=== PATIENT | male | born 1935 | race American Indian/Alaskan Native ===

== ENCOUNTER 2016-09-14 12:05 | Emergency (ER) | payer MEDICARE ==
[2016-09-14 12:30] VITALS: BP 127/86
[2016-09-14] MEDS ORDERED: FLEXERIL PO ONE (13:47)
[2016-09-14] MEDS ORDERED: NORCO 5/325 PO ONE (13:47)
--- NOTE | 2016-09-14 13:47 | Emergency Department Report ---
ED Neck Pain/Injury HPI - General Chief Complaint: Neck Pain/Injury Stated Complaint: NECK PAIN Time Seen by Provider: 09/14/16 13:41 Mode of arrival: Ambulatory Limitations: No Limitations - History of Present Illness Initial Comments: Patient has history of recurrent musculoskeletal neck pain. pt denies injury, headache,photofobia, n/v, dizziness, paresthesia, weakness, confusion or slurred speech. pt lives with his daughter and she confirms that this is a normal recurrence of his neck pain and pts behavior has been normal as usual . MD Complaint: neck pain, neck injury -: Gradual Radiation: right lateral, right shoulder Severity scale (0 -10): 6 Quality: aching Improves With: heat therapy Worsens With: movement of neck Associated Symptoms: none. denies: headache, fever, numbness, tingling, weakness, vertigo, difficulty walking, swollen glands, difficulty swallowing, nausea, vomiting - Related Data Previous Rx's Medication Instructions Recorded Last Taken Type Meloxicam [Mobic] 7.5 mg PO QDAY #7 tablet 09/14/16 Unknown Rx Methocarbamol [Robaxin TAB] 750 mg PO BID #20 tablet 09/14/16 Unknown Rx Allergies Allergy/AdvReac Type Severity Reaction Status Date / Time No Known Allergies Allergy Unverified 09/14/16 12:27 ED Review of Systems ROS: Stated complaint: NECK PAIN Other details as noted in HPI Constitutional: denies: chills, fever Eyes: denies: eye pain, eye discharge, vision change ENT: denies: ear pain, throat pain Respiratory: denies: cough, shortness of breath, wheezing Cardiovascular: denies: chest pain, palpitations Endocrine: no symptoms reported Gastrointestinal: denies: abdominal pain, nausea, diarrhea Genitourinary: denies: urgency, dysuria Musculoskeletal: denies: back pain, joint swelling, arthralgia Skin: denies: rash, lesions Neurological: denies: headache, weakness, paresthesias Psychiatric: denies: anxiety, depression Hematological/Lymphatic: denies: easy bleeding, easy bruising ED Past Medical Hx - Past Medical History Previous Medical History?: Yes Hx Hypertension: Yes - Surgical History Past Surgical History?: No - Social History Smoking Status: Never Smoker Substance Use Type: None - Medications Home Medications: Home Medications Medication Instructions Recorded Confirmed Last Taken Type Meloxicam [Mobic] 7.5 mg PO QDAY #7 tablet 09/14/16 Unknown Rx Methocarbamol [Robaxin TAB] 750 mg PO BID #20 tablet 09/14/16 Unknown Rx ED Physical Exam - General Limitations: No Limitations General appearance: alert, in no apparent distress - Head Head exam: Present: atraumatic, normocephalic - Eye Eye exam: Present: normal appearance, PERRL, EOMI - ENT ENT exam: Present: mucous membranes moist - Neck Neck exam: Present: normal inspection, tenderness, full ROM. Absent: meningismus, lymphadenopathy, thyromegaly - Expanded Neck Exam Expanded Neck exam: Present: tenderness (right paraspinous tenderness). Absent: midline deformity, anterior neck swelling, thyroid mass, carotid bruit 1 - torticollis - Respiratory Respiratory exam: Present: normal lung sounds bilaterally. Absent: respiratory distress, wheezes, rales, rhonchi, chest wall tenderness, accessory muscle use, decreased breath sounds, prolonged expiratory - Cardiovascular Cardiovascular Exam: Present: regular rate, normal rhythm. Absent: systolic murmur, diastolic murmur, rubs, gallop - GI/Abdominal GI/Abdominal exam: Present: soft, normal bowel sounds - Rectal Rectal exam: Present: deferred - Extremities Exam Extremities exam: Present: normal inspection - Back Exam Back exam: Present: normal inspection, full ROM. Absent: tenderness, CVA tenderness (R), CVA tenderness (L), muscle spasm, paraspinal tenderness, vertebral tenderness - Neurological Exam Neurological exam: Present: alert, oriented X3, CN II-XII intact, normal gait. Absent: altered, motor sensory deficit - Psychiatric Psychiatric exam: Present: normal affect, normal mood - Skin Skin exam: Present: warm, dry, intact, normal color. Absent: rash ED Course Vital Signs 09/14/16 12:27 Temperature 98.0 F Pulse Rate 57 L Respiratory 16 Rate Blood Pressure 127/86 O2 Sat by Pulse 99 Oximetry Critical care attestation.: If time is entered above; I have spent that time in minutes in the direct care of this critically ill patient, excluding procedure time. ED Disposition Clinical Impression: Torticollis, DJD (degenerative joint disease) of cervical spine Disposition: DISCHARGED TO HOME OR SELFCARE Is pt being admited?: No Condition: Stable Instructions: Osteoarthritis (ED), Spasmodic Torticollis (ED) Prescriptions: Meloxicam [Mobic] 7.5 mg PO QDAY #7 tablet Methocarbamol [Robaxin TAB] 750 mg PO BID #20 tablet Referrals: PRIMARY CARE,MD [Primary Care Provider] - 3-5 Days
--- NOTE | 2016-09-14 15:01 | Cat Scan Report ---
FINAL REPORT EXAM: CT CERVICAL SPINE WO CON HISTORY: pain TECHNIQUE: CT scan of the cervical spine without IV contrast. Multiplanar reformations. PRIORS: None FINDINGS: No fracture or focal malalignment. Extensive multilevel degenerative changes. Disc space narrowing at all levels. No prevertebral soft tissue swelling. C2-C3: Uncovertebral joint and facet arthritic change. Mild foraminal narrowing on both sides. No spinal stenosis. C3-C4: Mild disc osteophyte complex. Mild foraminal narrowing bilaterally. No spinal stenosis. C4-C5: Disc osteophyte complex. Limited soft tissue detail, no convincing focal disc protrusion. Mild foraminal narrowing bilaterally. Mild spinal stenosis. C5-C6: Disc osteophyte complex moderate disc osteophyte complex with mild spinal stenosis, mild foraminal narrowing bilaterally. C6-C7: Moderate disc osteophyte complex. Mild foraminal narrowing bilaterally. Mild spinal stenosis. Limited soft tissue detail. C7-T1: There is no disc protrusion, central, or foraminal stenosis. IMPRESSION: 1. Extensive multilevel degenerative changes with foraminal and central stenosis as described. Limited soft tissue detail. MRI would better evaluate soft tissues if indicated.
== END 2016-09-14 16:01 | disposition home or self-care (01) ==
LOC: ED 12:05
DX: M43.6 Torticollis (principal); M47.9 Spondylosis, unspecified; I10 Essential (primary) hypertension
CPT/HCPCS: 72125; 99283

== ENCOUNTER 2019-10-11 12:45 | Emergency (ER) | payer MEDICARE ==
[2019-10-11 12:54] VITALS: BP 125/65
--- NOTE | 2019-10-11 13:32 | Event Note ---
ED Screening Note ED Screening Note: l knee pain and swelling r great toe pain pmh htn hpld no hx gout no fall This initial assessment/diagnostic orders/clinical plan/treatment(s) is/are subject to change based on patients health status, clinical progression and re- assessment by fellow clinical providers in the ED. Further treatment and workup at subsequent clinical providers discretion. Patient/guardian urged not to elope from the ED as their condition may be serious if not clinically assessed and managed. Initial orders include: suspect gout given swelling will xray knee
--- NOTE | 2019-10-11 14:12 | XRay Report ---
Left knee-2 views INDICATION: KNEE PAIN. COMPARISON: None. IMPRESSION: No acute osseous abnormality or malalignment. Small suprapatellar effusion. Moderate tr icompartmental DJD with chondrocalcinosis in the femorotibial joint spaces and small posterior osteoc hondral body. Signer Name: Chaim Rees MD Signed: 10/11/2019 2:08 PM Workstation Name: [id number]
[2019-10-11 14:35] LABS: Hematocrit 40.9 % (35.5-45.6); Hemoglobin 13.3 gm/dl (11.8-15.2); Mean Corpuscular HGB Conc 32 % (32-34); Mean Corpuscular Volume 86 fl (84-94); Platelet Count 239 K/mm3 (140-440); Red Blood Count 4.75 M/mm3 (3.65-5.03); Red Cell Distribution Width 13.6 % (13.2-15.2)
[2019-10-11 14:55] LABS: Calcium 9.5 mg/dL (8.4-10.2); Uric Acid 8.3 mg/dL (3.5-7.6)
--- NOTE | 2019-10-11 15:17 | Emergency Department Report ---
ED Extremity Problem HPI - General Chief complaint: Extremity Injury, Lower Stated complaint: KNEE PAIN Time Seen by Provider: 10/11/19 13:30 Source: patient, family Mode of arrival: Wheelchair Limitations: No Limitations - Related Data Previous Rx's Medication Instructions Recorded Last Taken Type Colchicine 0.6 mg PO DAILY #8 capsule 10/11/19 Unknown Rx Ibuprofen [Motrin] 800 mg PO Q8HR PRN #30 tablet 10/11/19 Unknown Rx predniSONE [Deltasone] 20 mg PO DAILY #5 tablet 10/11/19 Unknown Rx Allergies Allergy/AdvReac Type Severity Reaction Status Date / Time No Known Allergies Allergy Unverified 09/14/16 12:27 ED Review of Systems ROS: Stated complaint: KNEE PAIN Other details as noted in HPI Comment: All other systems reviewed and negative ED Past Medical Hx - Past Medical History Previous Medical History?: Yes Hx Hypertension: Yes Hx Renal Disease: Yes - Surgical History Past Surgical History?: Yes Additional Surgical History: bilateral eye surgery - Social History Smoking Status: Never Smoker Substance Use Type: None - Medications Home Medications: Home Medications Medication Instructions Recorded Confirmed Last Taken Type Colchicine 0.6 mg PO DAILY #8 capsule 10/11/19 Unknown Rx Ibuprofen [Motrin] 800 mg PO Q8HR PRN #30 tablet 10/11/19 Unknown Rx predniSONE [Deltasone] 20 mg PO DAILY #5 tablet 10/11/19 Unknown Rx ED Physical Exam - General Limitations: No Limitations General appearance: alert, in no apparent distress - Head Head exam: Present: atraumatic, normocephalic - Eye Eye exam: Present: normal appearance - ENT ENT exam: Present: mucous membranes moist - Neck Neck exam: Present: normal inspection - Respiratory Respiratory exam: Present: normal lung sounds bilaterally. Absent: respiratory distress - Cardiovascular Cardiovascular Exam: Present: regular rate, normal rhythm. Absent: systolic murmur, diastolic murmur, rubs, gallop - GI/Abdominal GI/Abdominal exam: Present: soft, normal bowel sounds - Rectal Rectal exam: Present: deferred - Extremities Exam Extremities exam: Present: normal inspection - Back Exam Back exam: Present: normal inspection - Neurological Exam Neurological exam: Present: alert, oriented X3 - Psychiatric Psychiatric exam: Present: normal affect, normal mood - Skin Skin exam: Present: warm, dry, intact, normal color. Absent: rash ED Course Vital Signs 10/11/19 12:51 Temperature 98.0 F Pulse Rate 67 Respiratory 16 Rate Blood Pressure 125/65 O2 Sat by Pulse 98 Oximetry ED Medical Decision Making - Lab Data Result diagrams: 10/11/19 14:24 10/11/19 14:24 - Radiology Data Radiology results: report reviewed, image reviewed Critical care attestation.: If time is entered above; I have spent that time in minutes in the direct care of this critically ill patient, excluding procedure time. ED Disposition Clinical Impression: Gout Disposition: DC- TO HOME OR SELFCARE Is pt being admited?: No Does the pt Need Aspirin: No Condition: Stable Instructions: Acute Gouty Arthritis (ED) Additional Instructions: MEDS ORDERED SEE PCP THURSDAY TO BE RE CHECKED TO BE SURE YOU ARE BETTER REFERRAL BELOW SEE ATTACHED DIET INSTRUCTIONS STAY WELL HYDRATED WITH WATER Referrals: LAURA YAO MD [Staff Physician] - 3-5 Days Time of Disposition: 15:14
== END 2019-10-11 15:20 | disposition home or self-care (01) ==
LOC: ED 12:45
DX: M10.9 Gout, unspecified (principal); I10 Essential (primary) hypertension; N28.9 Disorder of kidney and ureter, unspecified; Z79.899 Other long term (current) drug therapy
CPT/HCPCS: 36415; 80048; 84550; 85027; 99283

== ENCOUNTER 2020-04-12 13:06 | Emergency (ER) | payer MEDICARE ==
--- NOTE | 2020-04-12 13:17 | Event Note ---
ED Screening Note ED Screening Note: ADMITTED YEST W FEVER COMES IN WITH COUGH AND MUSCLE ACHES This initial assessment/diagnostic orders/clinical plan/treatment(s) is/are subject to change based on patients health status, clinical progression and re- assessment by fellow clinical providers in the ED. Further treatment and workup at subsequent clinical providers discretion. Patient/guardian urged not to elope from the ED as their condition may be serious if not clinically assessed and managed. Initial orders include: XR RO PNA/COVID
[2020-04-12 14:06] LABS: Basophils % (Auto) 0.8 % (0.0-1.8); Eosinophils % (Auto) 0.9 % (0.0-4.3); Hematocrit 38.4 % (35.5-45.6); Hemoglobin 12.6 gm/dl (11.8-15.2); Lymphocytes # (Auto) 1.4 K/mm3 (1.2-5.4); Lymphocytes % (Auto) 28.4 % (13.4-35.0); Mean Corpuscular HGB Conc 33 % (32-34); Mean Corpuscular Volume 85 fl (84-94); Monocytes # (Auto) 0.6 K/mm3 (0.0-0.8); Monocytes % (Auto) 11.5 % (0.0-7.3); Platelet Count 183 K/mm3 (140-440); Red Cell Distribution Width 13.9 % (13.2-15.2)
[2020-04-12 14:31] LABS: Alanine Aminotransferase 37 units/L (7-56); Albumin 4.1 g/dL (3.9-5); BUN/Creatinine Ratio 22; Blood Urea Nitrogen 38 mg/dL (9-20); Hemolysis Index 3
--- NOTE | 2020-04-12 15:01 | XRay Report ---
CHEST 2 VIEWS INDICATION / CLINICAL INFORMATION: COUGH. COMPARISON: None available. FINDINGS: SUPPORT DEVICES: None. HEART / MEDIASTINUM: No significant abnormality. LUNGS / PLEURA: No significant pulmonary or pleural abnormality. No pneumothorax. No confluent infilt rates or pleural effusions. ADDITIONAL FINDINGS: Mild elevation of left hemidiaphragm. IMPRESSION: 1. No acute findings. Signer Name: Lucien Canchola MD Signed: 04/12/2020 2:56 PM Workstation Name: [id number]
[2020-04-12 18:24] VITALS: BP 132/64
[2020-04-12 18:50] LABS: Bilirubin,Urine NEG (Negative); Blood,Urine NEG (Negative); Color,Urine Yellow (Yellow); Protein,Urine <15 mg/dL mg/dL (Negative); Urobilinogen,Urine < 2.0 mg/dL (<2.0)
[2020-04-12] MEDS ORDERED: SODIUM CHLORIDE 0.9% 1000 ML 1,000 ML IV ONE (18:53)
--- NOTE | 2020-04-12 19:49 | Emergency Department Report ---
- General Chief Complaint: Upper Respiratory Infection Stated Complaint: COUGHING/BODY ACHES Time Seen by Provider: 04/12/20 13:16 Source: patient Mode of arrival: Ambulatory Limitations: No Limitations - History of Present Illness Initial Comments: 85-year male with a past medical hypertension and chronic renal sufficiency presents to the hospital complaining of cough and body aches. Patient has had a cough productive for the last 2 weeks worse for last 3 days. Cough productive yellow sputum. Positive body aches and chills without reports of fever. No loss of sense of taste or smell. Patient has not been tested for Covid. Other exposures have been tested for Covid but currently awaiting results. Patient reports decreased appetite. PMD: [facility] - Related Data Previous Rx's Medication Instructions Recorded Last Taken Type Colchicine 0.6 mg PO DAILY #8 capsule 10/11/19 Unknown Rx Ibuprofen [Motrin] 800 mg PO Q8HR PRN #30 tablet 10/11/19 Unknown Rx predniSONE [Deltasone] 20 mg PO DAILY #5 tablet 10/11/19 Unknown Rx Allergies Allergy/AdvReac Type Severity Reaction Status Date / Time No Known Allergies Allergy Verified 04/12/20 13:12 ED Review of Systems ROS: Stated complaint: COUGHING/BODY ACHES Other details as noted in HPI Comment: All other systems reviewed and negative ED Past Medical Hx - Past Medical History Hx Hypertension: Yes Hx Renal Disease: Yes - Surgical History Additional Surgical History: bilateral eye surgery - Social History Smoking Status: Current Some Day Smoker - Medications Home Medications: Home Medications Medication Instructions Recorded Confirmed Last Taken Type Colchicine 0.6 mg PO DAILY #8 capsule 10/11/19 Unknown Rx Ibuprofen [Motrin] 800 mg PO Q8HR PRN #30 tablet 10/11/19 Unknown Rx predniSONE [Deltasone] 20 mg PO DAILY #5 tablet 10/11/19 Unknown Rx ED Physical Exam - General Limitations: No Limitations - Other Other exam information: General: No acute distress Head: Atraumatic Eyes: normal appearance ENT: Moist mucous membranes Neck: Normal appearance, no midline tenderness Chest: Clear to auscultation bilaterally CV: Regular rate and rhythm Abdomen: Soft, normal bowel sounds, nontender, nondistended, no rebound or guarding Back: Normal inspection Extremity: Normal inspection, full range of motion Neuro: Alert O x 3, no facial asymmetry, speech clear, no gross motor sensory deficit Psych: Appropriate behavior Skin: No rash ED Course Vital Signs 04/12/20 04/12/20 04/12/20 13:14 18:22 18:23 Temperature 98.6 F 99.5 F Pulse Rate 79 76 Respiratory 16 17 Rate Blood Pressure 120/69 Blood Pressure 132/64 [Right] O2 Sat by Pulse 98 97 97 Oximetry ED Medical Decision Making - Lab Data Result diagrams: 04/12/20 13:31 04/12/20 13:31 Lab Results 04/12/20 04/12/20 04/12/20 Range/Units 13:31 13:31 18:21 WBC 4.9 (4.5-11.0) K/mm3 RBC 4.50 (3.65-5.03) M/mm3 Hgb 12.6 (11.8-15.2) gm/dl Hct 38.4 (35.5-45.6) % MCV 85 (84-94) fl MCH 28 (28-32) pg MCHC 33 (32-34) % RDW 13.9 (13.2-15.2) % Plt Count 183 (140-440) K/mm3 Lymph % (Auto) 28.4 (13.4-35.0) % Luce % (Auto) 11.5 H (0.0-7.3) % Eos % (Auto) 0.9 (0.0-4.3) % Baso % (Auto) 0.8 (0.0-1.8) % Lymph # (Auto) 1.4 (1.2-5.4) K/mm3 Luce # (Auto) 0.6 (0.0-0.8) K/mm3 Eos # (Auto) 0.0 (0.0-0.4) K/mm3 Baso # (Auto) 0.0 (0.0-0.1) K/mm3 Seg Neutrophils % 58.4 (40.0-70.0) % Seg Neutrophils # 2.9 (1.8-7.7) K/mm3 Sodium 137 (137-145) mmol/L Potassium 4.6 (3.6-5.0) mmol/L Chloride 101.9 (98-107) mmol/L Carbon Dioxide 24 (22-30) mmol/L Anion Gap 16 mmol/L BUN 38 H (9-20) mg/dL Creatinine 1.7 H (0.8-1.3) mg/dL Estimated GFR 47 ml/min BUN/Creatinine Ratio 22 % Glucose 95 (75-100) mg/dL Calcium 9.0 (8.4-10.2) mg/dL Total Bilirubin 0.50 (0.1-1.2) mg/dL AST 46 H (5-40) units/L ALT 37 (7-56) units/L Alkaline Phosphatase 101 (35-129) units/L Troponin T < 0.010 (0.00-0.029) ng/mL Total Protein 7.5 (6.3-8.2) g/dL Albumin 4.1 (3.9-5) g/dL Albumin/Globulin Ratio 1.2 % Urine Color Yellow (Yellow) Urine Turbidity Clear (Clear) Urine pH 6.0 (5.0-7.0) Ur Specific Waite 1.012 (1.003-1.030) Urine Protein <15 mg/dl (Negative) mg/dL Urine Glucose (UA) Neg (Negative) mg/dL Urine Ketones Neg (Negative) mg/dL Urine Blood Neg (Negative) Urine Nitrite Neg (Negative) Ur Reducing Substances Not Reportable Urine Bilirubin Neg (Negative) Urine Ictotest Not Reportable Urine Urobilinogen < 2.0 (<2.0) mg/dL Ur Leukocyte Esterase Neg (Negative) Urine WBC (Auto) 1.0 (0.0-6.0) /HPF Urine RBC (Auto) 2.0 (0.0-6.0) /HPF U Epithel Cells (Auto) < 1.0 (0-13.0) /HPF - EKG Data -: EKG Interpreted by Or EKG shows normal: sinus rhythm, ST-T waves (no stemi) Rate: normal - Medical Decision Making Nontoxic-appearing 85-year male presents to the hospital respiratory symptoms and body aches. Chest x-ray negative for pneumonia. Mild worsening renal insufficiency noted with increased BUN to creatinine ratio to suggest dehydration. 1 L normal saline ordered. Patient has upcoming visit with his fluid power mechanic scheduled for April 19. Copy of blood work will be provided for outpatient follow-up for comparison. Patient instructed only to take Tylenol and states he is aware not to take NSAIDs Critical Care Time: No Critical care attestation.: If time is entered above; I have spent that time in minutes in the direct care of this critically ill patient, excluding procedure time. ED Disposition Clinical Impression: Viral syndrome, Suspected COVID-19 virus infection, Chronic renal insufficiency, Dehydration Disposition: DC- TO HOME OR SELFCARE Is pt being admited?: No Does the pt Need Aspirin: No Condition: Stable Instructions: COVID-19, Viral Respiratory Infection, [id number], Chronic Kidney Disease, Adult, [id number], Dehydration, Elderly, [id number] Additional Instructions: Take the medication as prescribed. Follow-up with your doctor or doctor/clinic provided. Return if symptoms worsen as indicated by your discharge ins tructions. Continue to monitor your symptoms. I recommend that you receive outpatient coronavirus testing since we have do not offer rapid Covid test in the emergency department. There are several outpatient facilities that do offer coronavirus testing. Continue to wear your mask, continue good hygiene, and continue to isolate from others until your Covid status can be determined. Referrals: PRIMARY CARE [Primary Care Provider] - 3-5 Days Time of Disposition: 19:49
== END 2020-04-12 21:30 | disposition home or self-care (01) ==
LOC: ED 13:06
DX: B34.9 Viral infection, unspecified (principal); E86.0 Dehydration; Z20.828 Contact with and (suspected) exposure to other viral communicable diseases; I12.9 Hypertensive chronic kidney disease with stage 1 through stage 4 chronic kidney disease, or unspecified chronic kidney disease; N18.9 Chronic kidney disease, unspecified; F17.200 Nicotine dependence, unspecified, uncomplicated; Z98.890 Other specified postprocedural states; Z79.1 Long term (current) use of non-steroidal anti-inflammatories (NSAID); Z79.899 Other long term (current) drug therapy
CPT/HCPCS: 36415; 71046; 80053; 81001; 84484; 85025; 93005; 96360; 99284; J7030

== ENCOUNTER 2020-11-22 16:15 | Inpatient (IN) | payer MEDICARE ==
[2020-11-26 05:13] VITALS: BP 131/51
== END 2020-11-26 13:00 | disposition home or self-care (01) | DRG 444 ==
LOC: ED 16:15 → 3A 11-23 05:48 → OBSVTOIN 11-23 18:26
PROVIDERS: ADMIT Hospitalist; ATTEND Internal Medicine
DX: K81.0 Acute cholecystitis (principal); N17.0 Acute kidney failure with tubular necrosis; I10 Essential (primary) hypertension; F17.200 Nicotine dependence, unspecified, uncomplicated; R94.5 Abnormal results of liver function studies; Z88.8 Allergy status to other drugs, medicaments and biological substances; R74.01 Elevation of levels of liver transaminase levels; K21.9 Gastro-esophageal reflux disease without esophagitis
CPT/HCPCS: 36415; 74177; 74181; 76705; 78226; 80053; 80074; 80076; 80320; 81001; 83516; 83520; 83690; 83735; 85025; 85610; 85730; 86235; 86664; 86665; 87529; 94640; G0378; A9537; G0480; J1644; J2543; J7030; Q9967